=== PATIENT | female | born 1985 | race Caucasian/White ===

== ENCOUNTER 2024-12-13 12:29 | Emergency (ER) | payer BC, SELFPAY ==
--- NOTE | 2024-12-13 12:57 | XR_ITS ---
Examination: Foot, right, 3 views Technique: AP, oblique, lateral views foot, 3 views Date and time of exam: November 16, 2024 1304 hours INDICATIONS: Patient fell today with injury to the foot, foot pain. FINDINGS: 4 mm plantar bony calcaneal spur Fractures mid portions proximal phalanges fourth and fifth digits with angulation at the fracture sites No foreign bodies IMPRESSION: Acute fractures proximal phalanges fourth and fifth digits
--- NOTE | 2024-12-13 12:57 | XR_ITS ---
EXAMINATION: Ankle, right 3 views . Technique: Ankle AP, oblique, lateral 3 views Date and time of exam: December 13, 2024 1304 hours INDICATIONS: Patient fell today with injury ankle, ankle pain. FINDINGS: No fracture or dislocation. No foreign body IMPRESSION: No fracture or dislocation
[2024-12-13 13:01] VITALS: BP 149/88; PULSE 88; RESP 16; TEMP 37.3; O2SAT 98; BMI 29.8
--- NOTE | 2024-12-13 13:03 | PD.EDANKLE ---
Lower Extremity Injury RME/HPI General Chief Complaint: Ankle/Foot Injury Stated Complaint: POSS FX R) 4TH/5TH TOES Time Seen by Provider: 12/13/24 12:51 Source: patient Arrival date/time: 12/13/24 12:29 39-year-old female with no known medical history presents to the emergency room with a chief complaint of tenderness and pain to the right foot after rolling it 1 hour ago Mode of arrival: ambulatory Limitations: no limitations Related Data Home Medications ?Medication ?Instructions ?Recorded ?Confirmed amitriptyline 25 mg tablet 25 mg PO QDAY 09/29/22 09/29/22 canagliflozin 300 mg tablet 300 mg PO QAM 09/29/22 09/29/22 (Invokana) diclofenac potassium 25 mg tablet 50 mg PO DAILY 09/29/22 09/29/22 (Lofena) omeprazole 20 mg capsule,delayed 20 mg PO QDAY 09/29/22 09/29/22 release sucralfate 1 gram tablet 1 g PO BID 09/29/22 09/29/22 Previous Rx's ?Medication ?Instructions ?Recorded cephalexin 500 mg capsule 500 mg PO Q8H #15 caps 09/30/22 Allergies Allergy/AdvReac Type Severity Reaction Status Date / Time pineapple Allergy Severe UNABLE TO Verified 12/13/24 12:33 SWALLOW latex Allergy Mild Rash Verified 12/13/24 12:33 Review of Systems Review of Systems Systems Reviewed: All systems reviewed, normal except as documented Constitutional Constitutional: Reports system reviewed and no additional complaints, except as documented, Denies fatigue, Denies fever(s), Denies headache(s) and Denies weakness Eyes Eyes: Reports system reviewed and no additional complaints, except as documented, Denies blurry vision and Denies change in vision ENT Ears, Nose, Mouth, and Throat: Reports system reviewed and no additional complaints, except as documented, Denies otalgia, Denies headache(s), Denies nasal congestion, Denies throat swelling and Denies vertigo Cardiovascular Cardiovascular: Reports system reviewed and no additional complaints, except as documented, Denies chest pain, Denies dyspnea and Denies dyspnea on exertion Respiratory Respiratory: Reports system reviewed and no additional complaints, except as documented, Denies chest congestion, Denies cough, Denies dyspnea, Denies dyspnea on exertion and Denies wheezing Gastrointestinal Gastrointestinal: Reports system reviewed and no additional complaints, except as documented, Denies abdominal pain, Denies cramping, Denies nausea and Denies vomiting Genitourinary Genitourinary: Reports system reviewed and no additional complaints, except as documented Musculoskeletal Musculoskeletal: Reports system reviewed and no additional complaints, except as documented, Reports abnormal gait, Reports arthralgias, Denies back pain, Reports joint swelling and Reports limited range of motion Integumentary/Breasts Skin/Breast: Reports system reviewed and no additional complaints, except as documented and Denies wounds Neurologic Neurologic: Reports system reviewed and no additional complaints, except as documented, Reports abnormal gait, Denies confusion, Denies headache(s), Denies lack of coordination, Denies vertigo and Denies weakness Psychiatric Psychiatric: Reports system reviewed and no additional complaints, except as documented, Denies anxiety, Denies confusion, Denies depression, Denies paranoia, Denies suicidal ideation and Denies tactile hallucinations Endocrine Endocrine: Reports system reviewed and no additional complaints, except as documented and Denies fatigue Hematologic/Lymphatic Hematologic/Lymphatic: Reports system reviewed and no additional complaints, except as documented and Denies lymphadenopathy Allergic/Immunologic Allergic/Immunologic: Reports system reviewed and no additional complaints, except as documented, Denies throat swelling, Denies urticaria and Denies wheezing Past Medical History Past Medical History NEUROLOGIC: Negative Neurological Disorders or Seizures CARDIAC: Negative Cardiac Disorders or Congestive Heart Failure RESPIRATORY: Positive Bronchitis; Negative Chronic Obstructive Pulmonary Disease (COPD) GASTROINTESTINAL: Positive Gastrointestinal Disorders, Gastroesophageal Reflux Disease and Obesity GENITOURINARY: Negative Genitourinary Disorders or Renal Disease REPRODUCTIVE: Positive Endometriosis and Previous Pregnancies (2) MUSCULOSKELETAL: Positive Musculoskeletal Disorders, Arthritis (back) and Fibromyalgia ENDOCRINE: Positive Endocrine Disorders and Diabetes Mellitus Type 2; Negative Diabetes Mellitus Type 1 HEMATOLOGIC: Negative Blood Disorders PSYCHO/SOCIAL: Positive Depression and Anxiety OTHER HISTORY: Positive Hospitalization (surgeries), Chicken Pox, Cancer and Cervical Cancer; Negative Autoimmune Disease, Shingles, Blood Transfusions, Anesthesia Reactions or MRSA Family History FAMILY HISTORY: Positive Family Surgery; Negative Family Psychiatric Problems, Family Respiratory Disorders, Family Cardiac Disorders, Family Gastrointestinal Problems, Family Cancer or Family Anesthesia Reaction Surgical History SURGICAL: Positive Tonsillectomy, Hysterectomy and Tubal Ligation Social History SMOKING STATUS: Never smoker ED Exam General Limitations: Present no limitations General appearance: Present alert and in no apparent distress Head Head exam: Present atraumatic Eye Eye exam: Present normal appearance, PERRL and EOMI ENT ENT exam: Present normal exam, normal oropharynx and mucous membranes moist Neck Neck exam: Present normal inspection, full ROM and trachea midline Chest Chest inspection: Present normal inspection and symmetric chest wall rise Respiratory Respiratory exam: Present normal lung sounds bilaterally Cardiovascular Cardiovascular exam: Present regular rate, normal rhythm and normal heart sounds Abdominal Exam Abdominal exam: Present soft and normal bowel sounds Extremities Exam Extremities exam: Present normal inspection and full ROM Expanded Lower Extremity Exam Hip/Pelvis exam: Present normal inspection Upper leg exam: Present normal inspection Knee exam: Present normal inspection Lower leg exam: Present normal inspection Ankle exam: Present normal inspection Foot/toe exam: Present full ROM, tenderness and swelling Back Exam Back exam: Present normal inspection and full ROM Neurological Exam Neurological exam: Present alert, oriented X3 and CN II-XII intact Psychiatric Psychiatric exam: Present normal affect and normal mood Skin Skin exam: Present warm, dry, intact and normal color Course Quality Measures none Orders Category Date Time Status velasquez wrap [Splint / Immobilizer] STAT Care 12/13/24 12:57 Completed XR ankle comp RT min 3V Stat Exams 12/13/24 12:57 Completed XR foot comp RT min 3V Stat Exams 12/13/24 12:57 Completed Vital Signs Vital signs: Vital Signs Temperature 99.1 F 12/13/24 13:01 Pulse Rate 88 12/13/24 13:01 Respiratory Rate 16 12/13/24 13:01 Blood Pressure 149/88 H 12/13/24 13:01 Pulse Oximetry (%) 98 12/13/24 13:01 Oxygen Delivery Method Room Air 12/13/24 13:01 O2 saturation 98% within normal limits Extremity Injury, Lower MDM Narrative MDM Narrative:: 39-year-old female with no known medical history presents to the emergency room with a chief complaint of tenderness and pain to the right foot after rolling it 1 hour ago Patient is hemodynamically stable and in no apparent distress. Physical examination shows tenderness pain and swelling to the patient's right foot. There is active sensation and good capillary refill. X-ray of the foot was completed and shows an acute fracture of the proximal phalanges 4th and 5th digits. A posterior short leg splint was placed and crutches were given to the patient. Patient was educated to follow-up with her primary care provider as a referral to an presidential support specialist may be needed for further management Patient was discharged and educated to follow-up with primary care provider in the next 24 to 48 hours and return to the emergency room for any evidence of worsening signs or symptoms Patient data External records reviewed:: [facility] previous records Clinical information provided by:: patient Social determinants that could affect healthcare access:: none Patient has the following chronic illnesses:: No chronic illness How is presenting disease/condition affected by chronic disease/condition?: no chronic disease Evaluation data The following diagnostics were reviewed and interpreted by me:: lab results and radiology exam(s) Lab and/or radiology exams considered but not ordered:: Labs and radiology exams considered and ordered Interpretation Summary: X-ray foot-FINDINGS: 4 mm plantar bony calcaneal spur Fractures mid portions proximal phalanges fourth and fifth digits with angulation at the fracture sites No foreign bodies IMPRESSION: Acute fractures proximal phalanges fourth and fifth digits Medications / Prescriptions Medications or Prescriptions considered but not ordered:: Medication given Medication administrations:: Medication not given Consultations Consultation(s) initiated? (list below): No Diagnosis Extremity Injury, Lower Differential Diagnosis: ankle sprain and strain, ankle fracture and other (Closed fracture of multiple phalanges) Most likely diagnosis given after review of the tests above:: Closed fracture of multiple phalanges Admission Indicated Admission indicated?: not indicated Admission Request Was there a request for admission?: No Disposition Plan Disposition Plan: Discharge Discharge Attestation Discharge Attestation: The patient and all family members were given an opportunity to ask questions and understood the discharge instructions. Discharge instructions specifically effects, indications for sooner follow up or return to the emergency department, and the expected course of current diagnosis. Patient condition: Stable Discharge Plan Plan Patient Disposition: HOME (Self Care) Discharge Disposition comment: Stable Prescriptions/Referrals Prescriptions/Med Rec: No Action sucralfate 1 gram Tablet 1 g PO BID amitriptyline 25 mg Tablet 25 mg PO QDAY omeprazole 20 mg Capsule,Delayed Release(Dr/Ec) 20 mg PO QDAY Invokana 300 mg Tablet 300 mg PO QAM diclofenac potassium [Lofena] 25 mg Tablet 50 mg PO DAILY cephalexin 500 mg capsule 500 mg PO Q8H Qty: 15 0RF Referrals: Sreedhar Euceda PA-C [Primary Care Provider] - In 1 week Problem List Clinical Impression: Closed fracture multiple phalanges, toe Patient/Caregiver Discharge Instructions Education Materials: ED Fracture, Foot Additional Instructions: Please follow-up with your primary care provider in the next 24 to 48 hours Your x-ray showed fracture of your 4th and 5th phalanges on your foot. Please follow-up with your primary care provider for referral to an presidential support specialist for further management. Please keep your splint in place until you are seen and cleared by an presidential support specialist For any evidence of worsening signs or symptoms return to emergency room immediately Print Language: Thai Stand Alone Forms: Emi Award Info., Work/School Release, Patient Portal Info Letter PA/PURCHASING ENGINEER Supervising Physician AGA/AURELIO Supervising Physician: Dr. Camarillo
== END 2024-12-13 15:30 | disposition home or self-care (01) ==
PROVIDERS: Emergency Provider Family Medicine; PCP Physician Assistant
DX: S92.511A Displaced fracture of proximal phalanx of right lesser toe(s), initial encounter for closed fracture (principal); S99.911A Unspecified injury of right ankle, initial encounter; W19.XXXA Unspecified fall, initial encounter
CPT/HCPCS: 29515; 73610; 73630; 99284